=== PATIENT | female | born 1940 | race Caucasian/White ===

== ENCOUNTER 2018-07-02 09:59 | Inpatient (IN) | payer MEDICARE, OTHER ==
[2018-07-01 20:00] VITALS: BP 162/78
[~2018-07-02] VITALS: Ht 167.6 cm; Wt 52.6 kg
[~2018-07-02 09:59] MED LIST: MIDODRINE HCL 55 M1 PO; MYSOLINE50 MG PO; TOPROL XL50 MG; VITAMIN D3400 UNIT PO
[2018-07-02 10:01] VITALS: BP 106/67
[2018-07-02] MEDS ORDERED: ASA81BEC PO (10:09)
[2018-07-02] MEDS ORDERED: CEROVITE ADVAN1 EACH PO (10:10)
[2018-07-02] MEDS ORDERED: CELEBREX 200 M200 M1 PO (10:10)
[2018-07-02] MEDS ORDERED: SYNTHROID75 MCG PO (10:10)
[2018-07-02] MEDS ORDERED: FLONASE 0.05%50 MCG NASAL (10:10)
[2018-07-02] MEDS ORDERED: EFFEXOR XR75 MG PO (10:11)
[2018-07-02] MEDS ORDERED: EXELON1 EACH TRANSDERM (10:11)
[2018-07-02] MEDS ORDERED: VITAMIN D-32000 UNIT PO (10:12)
[2018-07-02] MEDS ORDERED: TOPAMAX50 MG PO (10:12)
[2018-07-02] MEDS ORDERED: TRAZODONE HCL50 MG PO (10:13)
[2018-07-02 11:13] LABS: HEMATOCRIT 41.2 % (37.0-47.0); HEMOGLOBIN 13.9 gm/dL (12.0-15.0); MCH 29.5 pg (26.0-34.0); MCHC 33.8 g/dL (28.0-37.0); MCV 87.3 fL (80.0-100.0); NUCLEATED RBCS 0 /100WBC; PLATELET COUNT* 253 thou/uL (150-400); RBC 4.72 mil/uL (4.20-5.00)
[2018-07-02 11:24] LABS: APTT 27.6 Seconds (25.0-31.3); PROTIME 10.3 Seconds (9.20-11.50)
[2018-07-02 11:26] LABS: ANION GAP 8 mmol/L (7-16); BUN 23 mg/dL (7-18); CALCIUM 8.8 mg/dL (8.5-10.1); CHLORIDE 103 mmol/L (98-107); CO2 27 mmol/L (21-32); CREATININE 1.2 mg/dL (0.6-1.3); GLUCOSE 111 mg/dL (70-99); POTASSIUM 3.7 mmol/L (3.5-5.1); SODIUM 138 mmol/L (136-145)
[2018-07-02 11:37] LABS: ALBUMIN 3.3 g/dL (3.4-5.0); ALKALINE PHOSPHATASE 183 U/L (46-116); LIPASE 276 U/L (73-393); SGOT 23 U/L (15-37); SGPT 20 U/L (30-65); TOTAL BILIRUBIN 0.3 mg/dL (<0.1-1.0); TOTAL PROTEIN 6.8 g/dL (6.4-8.2); TROPONIN-I LEVEL <0.06 ng/mL (<0.06)
[2018-07-02 12:03] LABS: ABSOLUTE EOSINOPHILS 0.4 thou/uL (0.0-0.7); ABSOLUTE LYMPHOCYTES 0.7 thou/uL (0.8-5.3); ABSOLUTE MONOCYTES 0.4 thou/uL (0.0-1.2); ABSOLUTE NEUTROPHILS 4.6 thou/uL (1.6-8.1); ANISOCYTOSIS 1+; PLATELET ESTIMATE ADEQUATE; POIKILOCYTOSIS 1+
[2018-07-02 12:20] VITALS: BP 121/65
[2018-07-02 15:50] VITALS: BP 139/71
--- NOTE | 2018-07-02 16:22 | EKG ---
[place] [address] ELECTROCARDIOGRAM REPORT Name: RA THOMAS Room: [address] ADM IN [facility].#: [id number] Admission: 07/02/18 Attend Phys: Simran Diaz MD Discharge: Date of : 40 Report #: [id number] THIS REPORT FOR: //name// [facility] ED Test Date: 2018-07-02 Test Time: 10:04:30 Pat Name: RA THOMAS Department: Room: [facility] Gender: F Block Tester: CHELLE : 1940 Requested By: Oren Chávez Order Number: [id number] MD: Jackson Cerrato Measurements Intervals [place] Rate: 66 P: NH: 83 QRS: -3 QRSD: 98 T: 54 QT: 393 QTc: 412 Interpretive Statements Atrial-paced rhythm Low voltage, extremity leads Nonspecific T abnormalities, anterior leads No previous ECG available for comparison Electronically Signed On 07-02-2018 16:22:40 HAMMER ADJUSTER by Jackson Cerrato [email or web address] <ELECTRONICALLY SIGNED> By: Jackson Cerrato MD, [facility] 07/02/18 1622 1004 1004 Jackson Cerrato MD, [facility] /EPI
--- NOTE | 2018-07-02 16:23 | EKG ---
[place] [address] ELECTROCARDIOGRAM REPORT Name: RA THOMAS Room: [address] ADM IN [facility].#: [id number] Admission: 07/02/18 Attend Phys: Simran Diaz MD Discharge: Date of : 40 Report #: [id number] THIS REPORT FOR: //name// [facility] ED Test Date: 2018-07-02 Test Time: 11:45:23 Pat Name: RA THOMAS Department: Room: [facility] Gender: F Lumber Sorter Machine: Josephine LUTHER : 1940 Requested By: Oren Chávez Order Number: [id number] MD: Jackson Cerrato Measurements Intervals [place] Rate: 161 P: 0 ND: QRS: -30 QRSD: 62 T: QT: 332 QTc: 544 Interpretive Statements Supraventricular tachycardia Low voltage, extremity leads Repolarization abnormality, prob rate related No previous ECG available for comparison Electronically Signed On 07-02-2018 16:23:10 TYPING TEACHER by Jackson Cerrato [email or web address] <ELECTRONICALLY SIGNED> By: Jackson Cerrato MD, [facility] 07/02/18 1623 1145 1145 Jackson Cerrato MD, [facility] /EPI
--- NOTE | 2018-07-02 16:53 | NUR ---
PT ADMITTED FROM ER. HISTORY AND ASSESSMENT COMPLETE. SR ON MONITOR. PT REMOVED HER IV ACCESS. SEVERAL RN'S INCLUDING THE INFUSION NURSE UNSUCCESSFUL. DR CHANG NOTIFIED. ORDERS RECEIVED TO DISCONTINUE IV ACCESS AND DISCONTINUE IVF ORDERS. PT CONFUSED , VERBALLY AGRESSIVE AND EASILY AGITATED. SITTER AT BEDSIDE FOR PT SAFETY. DENIES PAIN. PACEMAKER INTEROGATED BY [employer] EMPLOYEE. RESULTS PLACED ON CHART.
--- NOTE | 2018-07-02 17:07 | NUR ---
PT REFUSED LAB DRAW.
--- NOTE | 2018-07-02 18:28 | NUR ---
PT REFUSES ALLL CARES. BECOMES AGITATED AND AGGRESSIVE WITH STAFF WHEN CARES ARE ATTEMPTED. SITTER REMAINS AT BEDSIDE FOR PT SAFETY.
[2018-07-02 20:00] VITALS: BP 162/78
[2018-07-03] VITALS: BP 152/83
[2018-07-03 04:00] VITALS: BP 156/87
--- NOTE | 2018-07-03 05:17 | NUR ---
ASSUMED CARE OF PT AFTER REPORT AT 1930. PT A&OX1, CONFUSED AND AGITATED AT TIMES. VSS. PHYSICAL ASSESSMENT COMPLETED AND CHARTED. PT ON RA WITH 94% O2 SAT. PT TRACING AV PACED ON TELE. PT REMAINS ON BED. PT INCONTINENT WITH BLADDER & BOWEL. PT COMPLAINED OF ABDOMINAL PAIN WITH PAIN SCALE OF 5/10-DENIES PAIN MEDS. PT WITH 1:1 SITTER. CALL LIGHT WITHIN REACH. BED IN LOW POSITION. BED ALARM ON.
[2018-07-03 08:00] VITALS: BP 169/82
--- NOTE | 2018-07-03 08:22 | CON ---
[address] [address] CONSULTATION Name: RA THOMAS Room: [address] IN [facility].#: [id number] Admission: 07/02/18 Attend Phys: Simran Diaz MD Discharge: Date of : 40 Report #: [id number] THIS REPORT FOR: //name// CC: Chitra Schmidt DO Simran Simms MD TYPE OF REPORT: Cardiology consultation. INDICATION: Syncope. HISTORY OF PRESENT ILLNESS: The patient is a moderately demented 78-year-old white female who apparently had a syncopal episode at her [place]. History is not obtainable from the patient. The patient's daughter is with her presently but was not with her this morning when she apparently passed out. There is no apparent injury. The patient was in supraventricular tachycardia in the Emergency Room today. She is now in normal sinus rhythm. She denies chest pain. She is not having shortness of breath. She is without specific cardiac complaint at this time. She has a pacemaker placed, presumably for some type of heart block in the past. Pacemaker interrogation is pending. PAST MEDICAL HISTORY: According to available documents includes syncope, supraventricular tachycardia, pacemaker, possible atrial fibrillation, dementia, essential tremor, status post stimulator placement, diverticulitis, cholecystectomy and hysterectomy. FAMILY HISTORY: Noncontributory. SOCIAL HISTORY: The patient lives in a [place] facility. She does not smoke or drink alcohol. MEDICATIONS: Vitamin D, midodrine, primidone, aspirin, Celebrex, multivitamin, Flonase, Synthroid, rivastigmine, Effexor XR, vitamin D3, Topamax and Desyrel. REVIEW OF SYSTEMS: Not significantly obtainable. PHYSICAL EXAMINATION: VITAL SIGNS: Blood pressure 121/65, pulse 60 and regular, paced. GENERAL: This is a pleasant elderly female who does not appear to be in distress. She is somewhat pale. HEENT: Head is normocephalic and atraumatic. Extraocular muscles are intact. Mucous membranes moist. NECK: Shows no jugular venous distention. CHEST: Reve[place] [address] CONSULTATION Name: RA THOMAS Room: [address] IN [facility]#: [id number] Admission: 07/02/18 Attend Phys: Simran Diaz MD Discharge: Date of : 40 Report #: [id number] CARDIOVASCULAR: Reveals a regular rhythm. Normal S1 and S2. I do not appreciate any gallop or murmur. ABDOMEN: Reveals normal bowel sounds. The abdomen is soft and nontender. EXTREMITIES: Shows no edema. Peripheral pulse palpable. CARDIOLOGICAL DATA: A 12-lead EKG shows SVT with ST-segment depression likely rate related. LABORATORY DATA: Labs are reviewed. Sodium 138, potassium 3.7, chloride 103, bicarb 27, BUN 23, creatinine 1.2 and serum glucose 111. Troponin less than 0.06. Coags normal. White blood cell count 6.0; hemoglobin 13.9 and platelet count 253,000. RADIOLOGICAL DATA: Chest x-ray, calcified lymph nodes and no acute process. IMPRESSION AND RECOMMENDATIONS: 1. Heart block, status post pacemaker placement, interrogation pending. 2. Syncope, etiology not clear. The patient is on midodrine. We would suggest she may have some orthostasis. I would increase the dose of midodrine at this time and follow clinically. We will obtain echocardiogram. 3. Supraventricular tachycardia. Recommend beta chaka for antiarrhythmic at this time. No indication for anticoagulation. 4. Questionable atrial fibrillation. I see no diagnosis or documentation of this anywhere. I would not recommend anticoagulation. <ELECTRONICALLY SIGNED> By: Jackson Cerrato MD, FACC 07/03/18 0822 1459 [id number] Cerrato MD, FACC /nt
[2018-07-03 11:55] VITALS: BP 179/93
[2018-07-03 12:19] LABS: CALCIUM 9.1 mg/dL (8.5-10.1); POTASSIUM 3.7 mmol/L (3.5-5.1)
--- NOTE | 2018-07-03 13:02 | NUR ---
ASSESSMENT COMPLETED REFER TO COMPUTER CHARTING. CARIDAC MONITOR TRACKING APACED. PATIENT RESTING IN BED REPORTING NO PAIN, OR SHORTNESS OF BREATH. PATIENT HAVING NAUSEA AND VOMITING. PATIENT CONFUSED AND IMPULSIVE. PATIENT ON ROOM AIR. NO IV ACCESS. FAMILY AT BEDSIDE THIS AM. WILL CONTINUE TO MONITOR THIS SHIFT.
--- NOTE | 2018-07-03 13:05 | NUR ---
Nutrition: Consult for poor intake. Spoke with pt's RN. Likely she will not comply with a supplement. RN stated pt just vomited with zofran. Clear to discharge if ok with neuro, however pt is vomiting today. Will follow POC. Diet: finger foods. Albumin 3.3. Mild risk.
[2018-07-03 15:38] VITALS: BP 136/76
[2018-07-03 20:00] VITALS: BP 141/83
[2018-07-04] VITALS: BP 127/71; BP 130/72
[2018-07-04 04:00] VITALS: BP 144/82
--- NOTE | 2018-07-04 04:28 | NUR ---
ASSUMED PT CARE AT 1930. ASSESSMENT COMPLETED CHARTED. SITTER AT BEDSIDE. A&OX1. INCONTINENT OF BLADDER AND BOWEL. Q2TURN. UNABLE TO MAKE NEEDS KNOWN. NO C/O PAIN UNLESS SHE WAS COUGHING AND SHE STATED THAT THAT MADE HER CHEST HURT. WILL CONTINUE TO MONITOR.
[2018-07-04 07:18] VITALS: BP 162/91
[2018-07-04 11:05] VITALS: BP 162/91
--- NOTE | 2018-07-04 11:20 | NUR ---
Pt to dc home to [facility] today. KYE called facility at [phone] and faxed info and dc orders and med list to fax [phone]. KYE spoke with nurse Jaramillo at facility who requested a later time for pt to arrive home to facility; they do not have availability to provide transport either. KYE called pt dtr Cristina and left a message and then realized Cristina was in pt room; KYE spoke with Cristina in regards to pt dc home today; pt dtr in agreement with plan. KYE called [employer] [facility] at [phone] and arranged for [facility] meat pickler at 5 pm. KYE discussed with pt nurse and provided number for pt nurse to call report to nursing at receiving facility.
--- NOTE | 2018-07-04 16:47 | NUR ---
ATTEMPTED TO CALL REPORT AT [phone] AND THE DIRECT NUMBER AT [facility] WITH NO ANSWER. NUMBER LEFT ON PACKET AND NUMBER GIVEN TO DAUGHTER FOR REPORT. BUILDING SERVICES SUPERVISOR REMOVED. DISCHARGE PACKET GIVEN TO TRANSPORTER. PATIENT LEAVING AT THIS TIME.
--- NOTE | 2018-07-06 13:00 | 2DMMODE ---
[place] [address] 2 D/M-MODE ECHOCARDIOGRAM Name: MARTHARA Darius Room: [address] IN .R.#: [id number] Admission: 07/02/18 Attend Phys: Simran Diaz, Discharge: 07/04/18 Date of : 40 Date of Service: 07/03/181809 Report #: [id number] THIS REPORT FOR: //name// APPROVED REPORT Study performed: 07/03/2018 15:51:25 EXAM: Limited 2D Echocardiogram Patient Location: Bedside BSA: 1.60 HR: 59 bpm BP: 179/93 mmHg Other Information Study Quality: Technically Limited Technically limited study due to uncooperative patient. Indications Arrhythmia Left Ventricle The left ventricle is normal size. There is normal left ventricular wall thickness. The left ventricular systolic function is normal. LVEF is 50-55%. <Conclusion> The left ventricle is normal size. There is normal left ventricular wall thickness. The left ventricular systolic function is normal. LVEF is 50-55%. <ELECTRONICALLY SIGNED> By: Jackson Cerrato MD, FACC 07/03/181809 09 1810 Jackson Cerrato MD, FACC /INF
== END 2018-07-04 16:52 | disposition short-term general hospital (02) | DRG 308 ==
LOC: M.ERS 09:59 → M.2W 12:04 → M.TBA-ER 12:04 → M.2W 12:38
PROVIDERS: Emergency Medicine; Internal Medicine; ADMIT Internal Medicine
DX: I45.9 Conduction disorder, unspecified (principal); G93.41 Metabolic encephalopathy; I47.1 Supraventricular tachycardia; R25.1 Tremor, unspecified; E86.0 Dehydration; F03.90 Unspecified dementia, unspecified severity, without behavioral disturbance, psychotic disturbance, mood disturbance, and anxiety; Z90.49 Acquired absence of other specified parts of digestive tract; Z95.0 Presence of cardiac pacemaker; Z90.710 Acquired absence of both cervix and uterus; Z88.1 Allergy status to other antibiotic agents; Z88.2 Allergy status to sulfonamides; Z88.8 Allergy status to other drugs, medicaments and biological substances; Z79.82 Long term (current) use of aspirin; Z79.899 Other long term (current) drug therapy